=== PATIENT | male | born 1990 | race Caucasian/White ===

== ENCOUNTER 2017-06-19 15:29 | Emergency (ER) | payer SELFPAY ==
[~2017-06-19] VITALS: Ht 175.3 cm; Wt 65.8 kg
[~2017-06-19 15:29] MED LIST: AMOX500C2 PO; ARPZ20T PO; BUSPAR; CLOT15CR6 TOP; DOXY100C2 PO; FLUO40CA PO; HYDR-757 PO; NAPR-1071 PO; NAPR-243 PO; SULF-222 PO; SULF1TAB38 PO; TRAM50TA2 PO; TRM50T PO; VIVANCE
--- OUTSIDE RECORDS SUMMARY | 2017-06-19 15:34 | XMS REPORT ---
Author Author JAZMINE RAMEY [facility] D[facility] Address Unknown Care Team Providers Care Summer Clerk Name Role Phone JAZMINE RAMEY Unavailable PROBLEMS Type Condition ICD9-CM Code [id number] Code Onset Dates Condition Status SNOMED Code Problem Mood disorder F39 Active 26184774 Problem Cellulitis and abscess of unspecified site 682.9 Active 169574802 Problem Contact with or exposure to venereal diseases V01.6 Active 440083347 Problem Sprain and strain of unspecified site of wrist 842.00 Active 44610600 Problem Other accidental fall from one level to another E884.9 Active 512051183 ALLERGIES No Known Allergies SOCIAL HISTORY Never Assessed PLAN OF CARE Activity Details Follow Up prn Reason:refer for Endo & crown #29 VITAL SIGNS Blood pressure systolic 128 mmHg 2016-11-01 Blood pressure diastolic 78 mmHg 2016-11-01 MEDICATIONS Medication Instructions Dosage Frequency Start Date End Date Duration Status Naproxen 500 MG Orally every 12 hrs 1 tablet as needed 12h October, Active BuSpar 10 MG Orally Twice a day 1 tablet 12h October, Active Amoxicillin 500 mg Orally every 12 hrs 2 capsules 12h October,October 10 day(s) Active RESULTS No Results PROCEDURES Procedure Date Ordered Result Body Site LTD ORAL EVALUATION - PROBLEM FOCUS November 01, 2016 INTRAORL-PERIAPICAL 1 FILM 00118 November 01, 2016 BITEWING - SINGLE FILM November 01, 2016 IMMUNIZATIONS No Known Immunizations MEDICAL (GENERAL) HISTORY Type Description Date Medical History anxiety Hospitalization History suicide attempt 2012 Hospitalization History multiple inpatient and group homes when child
--- OUTSIDE RECORDS SUMMARY | 2017-06-19 15:34 | XMS REPORT | Clinical Summary ---
Author Author [facility] Address Unknown Phone Unavailable Allergies Not on File Current Medications Not on file Active Problems Not on file Social History Tobacco Use Types Packs/Day Years Used Date Never Assessed Sex Assigned at Date Recorded Not on file Plan of Treatment Health Maintenance Due Date Last Done Comments Varicella Vaccines (1 of 2005 2 - 2 Dose Adolescent Series) DTaP,Tdap,and Td Vaccines 2011 (1 - Tdap) Influenza Vaccine (#1) 2017 HPV Vaccines Aged Out No longer eligible based on patient's age to complete this topic Results Not on filefrom Last 3 Months
--- OUTSIDE RECORDS SUMMARY | 2017-06-19 15:34 | XMS REPORT ---
Author Author ROMEO JIMENES Organization [employer] Address Unknown Phone Unavailable Care Team Providers Care Metal Fitter Name Role Phone ROMEO JIMENES CP Unavailable Allergies, Adverse Reactions, Alerts Substance Reaction Event Type N.K.D.A. Info Not Available Non Drug Allergy Problems Problem Type Condition Code Onset Dates Condition Status Problem Contact with or exposure to venereal diseases V01.6 Active Problem Sprain and strain of unspecified site of wrist 842.00 Active Problem Cellulitis and abscess of unspecified site 682.9 Active Problem Other accidental fall from one level to another E884.9 Active Assessment Dental examination Z01.20 Active Medications No Known Medications Procedures Procedure Coding System Code Date INTRAORL-PERIAPICAL 1 FILM 18579 CPT-4 D0220 January 12, 2016 INTRAORL-PERIAPICAL EA ADD FILM CPT-4 D0230 January 12, 2016 LTD ORAL EVALUATION - PROBLEM FOCUS CPT-4 D0140 January 12, 2016 BITEWING - SINGLE FILM CPT-4 D0270 January 12, 2016 Vital Signs Date/Time: January 12, 2016 Blood Pressure Diastolic 89 mmHg Blood Pressure Systolic 134 mmHg Results No Known Results Summary Purpose [employer] Submission
--- OUTSIDE RECORDS SUMMARY | 2017-06-19 15:35 | XMS REPORT ---
Author Author DEJA HICKS Organization [facility] Address [address] [place] [address] Care Team Providers Care Blindmaker Name Role Phone DEJA HICKS Unavailable PROBLEMS Type Condition ICD9-CM Code [id number] Code Onset Dates Condition Status SNOMED Code Problem Mood disorder F39 Active 71741285 Problem Cellulitis and abscess of unspecified site 682.9 Active 805686240 Problem Contact with or exposure to venereal diseases V01.6 Active 403550731 Problem Sprain and strain of unspecified site of wrist 842.00 Active 06091630 Problem Other accidental fall from one level to another E884.9 Active 452078320 ALLERGIES No Information SOCIAL HISTORY Never Assessed PLAN OF CARE VITAL SIGNS Height 67 in 2016-10-31 Weight 142 lbs 2016-10-31 Heart Rate 60 bpm 2016-10-31 Respiratory Rate 16 2016-10-31 BMI 22.24 kg/m2 2016-10-31 Blood pressure systolic 108 mmHg 2016-10-31 Blood pressure diastolic 60 mmHg 2016-10-31 MEDICATIONS Medication Instructions Dosage Frequency Start Date End Date Duration Status Naproxen 500 MG Orally every 12 hrs 1 tablet as needed October, Active BuSpar 10 MG Orally Twice a day 1 tablet October, Active Amoxicillin 500 mg Orally every 12 hrs 2 capsules October,October 10 day(s) Active RESULTS No Results PROCEDURES No Known procedures IMMUNIZATIONS No Known Immunizations MEDICAL (GENERAL) HISTORY Type Description Date Medical History anxiety Hospitalization History suicide attempt 2012 Hospitalization History multiple inpatient and group homes when child
--- OUTSIDE RECORDS SUMMARY | 2017-06-19 15:35 | XMS REPORT ---
Author Author JAZMINE RAMEY [facility] DENTAL Address Unknown Care Team Providers Care Senior Project Manager Engineering Name Role Phone KAROLINE JAZMINE Unavailable PROBLEMS Type Condition ICD9-CM Code [id number] Code Onset Dates Condition Status SNOMED Code Problem Mood disorder F39 Active 63655489 Problem Cellulitis and abscess of unspecified site 682.9 Active 230909669 Problem Contact with or exposure to venereal diseases V01.6 Active 276076042 Problem Sprain and strain of unspecified site of wrist 842.00 Active 84505392 Problem Other accidental fall from one level to another E884.9 Active 278710846 ALLERGIES No Known Allergies SOCIAL HISTORY Never Assessed PLAN OF CARE VITAL SIGNS MEDICATIONS Unknown Medications RESULTS No Results PROCEDURES Procedure Date Ordered Result Body Site LTD ORAL EVALUATION - PROBLEM FOCUS October 10, 2016 INTRAORL-PERIAPICAL 1 FILM 40064 October 10, 2016 EXTRAC ERUPTED TOOTH/EXPOSED ROOT October 10, 2016 IMMUNIZATIONS No Known Immunizations MEDICAL (GENERAL) HISTORY Type Description Date Medical History anxiety Hospitalization History suicide attempt 2012 Hospitalization History multiple inpatient and group homes when child
--- OUTSIDE RECORDS SUMMARY | 2017-06-19 15:35 | XMS REPORT ---
Author Author DEJA HICKS [facility] Address [address] [place] [address] Care Team Providers Care Market Research Senior Project Manager Name Role Phone DEJA HICKS Unavailable PROBLEMS Type Condition ICD9-CM Code [id number] Code Onset Dates Condition Status SNOMED Code Problem Mood disorder F39 Active 61790558 Problem Cellulitis and abscess of unspecified site 682.9 Active 094401602 Problem Contact with or exposure to venereal diseases V01.6 Active 295219254 Problem Sprain and strain of unspecified site of wrist 842.00 Active 28330867 Problem Other accidental fall from one level to another E884.9 Active 672623332 ALLERGIES No Information SOCIAL HISTORY Never Assessed PLAN OF CARE VITAL SIGNS MEDICATIONS Unknown Medications RESULTS Name Result Date Reference Range A1C (IN HOUSE) 2016-11-14 A1C IN HOUSE 5.6 4.3 - 5.6 % Previous A1c n/a Lot [id number] Exp date 06/2018 PROCEDURES Procedure Date Ordered Result Body Site GLYCATED HEMOGLOBIN TEST November 14, 2016 VENIPUNCT, ROUTINE* November 14, 2016 IMMUNIZATIONS No Known Immunizations MEDICAL (GENERAL) HISTORY Type Description Date Medical History anxiety Hospitalization History suicide attempt 2013 Hospitalization History multiple inpatient and group homes when child
--- OUTSIDE RECORDS SUMMARY | 2017-06-19 15:35 | XMS REPORT ---
Author Author DEJA HICKS [facility] Address [address] [place] [address] Care Team Providers Care Profile Stitching Machine Operator Name Role Phone DEJA HICKS Unavailable PROBLEMS Type Condition ICD9-CM Code [id number] Code Onset Dates Condition Status SNOMED Code Problem Mood disorder F39 Active 24059345 Problem Cellulitis and abscess of unspecified site 682.9 Active 778118816 Problem Contact with or exposure to venereal diseases V01.6 Active 609985586 Problem Sprain and strain of unspecified site of wrist 842.00 Active 48872878 Problem Other accidental fall from one level to another E884.9 Active 585834202 ALLERGIES Unknown Allergies SOCIAL HISTORY No smoking Hx information available PLAN OF CARE VITAL SIGNS Height 67 in 2016-07-11 Weight 143 lbs 2016-07-11 Heart Rate 76 bpm 2016-07-11 Respiratory Rate 16 2016-07-11 BMI 22.39 kg/m2 2016-07-11 Blood pressure systolic 110 mmHg 2016-07-11 Blood pressure diastolic 78 mmHg 2016-07-11 MEDICATIONS Unknown Medications RESULTS No Results PROCEDURES Procedure Date Ordered Related Diagnosis Body Site Office Visit, Est Pt., Level 2 Jul 11, 2016 IMMUNIZATIONS No Known Immunizations
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
--- OUTSIDE RECORDS SUMMARY | 2017-06-19 15:35 | XMS REPORT ---
Author Author DEJA HICKS [facility] Address [address] [place] [address] Care Team Providers Care Supervisor Customer Records Division Name Role Phone DEJA HICKS Unavailable PROBLEMS Type Condition ICD9-CM Code [id number] Code Onset Dates Condition Status SNOMED Code Problem Mood disorder F39 Active 11755733 Problem Cellulitis and abscess of unspecified site 682.9 Active 717215532 Problem Contact with or exposure to venereal diseases V01.6 Active 966185834 Problem Sprain and strain of unspecified site of wrist 842.00 Active 02373847 Problem Other accidental fall from one level to another E884.9 Active 781935211 ALLERGIES No Information SOCIAL HISTORY Never Assessed PLAN OF CARE VITAL SIGNS MEDICATIONS Medication Instructions Dosage Frequency Start Date End Date Duration Status BuSpar 15 MG Orally Twice a day 1 tablet 12h October, Active RESULTS No Results PROCEDURES No Known procedures IMMUNIZATIONS No Known Immunizations MEDICAL (GENERAL) HISTORY Type Description Date Medical History anxiety Hospitalization History suicide attempt 2013 Hospitalization History multiple inpatient and group homes when child
[2017-06-19] MEDS ORDERED: KETOROLAC 60 MG/2 ML VIAL IM STA (16:14)
[2017-06-19] MEDS ORDERED: LIDOCAINE 1% INJ 20 ML (XYLOCAINE) VIAL INJ ONE (16:15)
[2017-06-19] MEDS ORDERED: cefTRIAXone 1 GM (ROCEPHIN) VIAL IM ONE (16:15)
[2017-06-19] MEDS ORDERED: AMOX500T2 PO (16:19)
[2017-06-19] MEDS ORDERED: LIDO15SO2 MM (16:19)
[2017-06-19] MEDS ORDERED: NAPR500T4 PO (16:19)
[2017-06-19] MEDS ORDERED: LIDOCAINE PF 1% 5 ML (XYLOCAINE) AMP ONE (16:19)
--- NOTE | 2017-06-19 16:19 | ED EENT ---
History of Present Illness General Chief Complaint: Dental Problems/Pain Stated Complaint: TOOTH PAIN Nursing Triage Note: PT C/O L UPPER DENTAL PAIN AND SWELLING. Source: patient History of Present Illness Time seen by provider: 16:05 Initial Comments PT C/O DENTAL PAIN X 1 WEEK, WITH SWELLING TO LEFT SIDE OF FACE X 3 DAYS NO KNOWN FEVER PT WITH CHRONIC DENTAL PROBLEMS--HAS BEEN TO [facility] IN THE PAST, BUT THEY CANNOT GET HIM IN TODAY, SO HE CAME HERE PT STATES HAS BEEN TAKING IBUPROFEN WITHOUT RELIEF PT IS CURRENTLY IN TREATMENT AT [facility] FOR DRUG ADDICTION/ METH USE--STATES HE SMOKED IT, DENIES IV USE PCP:[facility] Allergies and Home Medications Allergies Coded Allergies: No Known Drug Allergies (Unverified , 11/10/11) Home Medications Amoxicillin 500 Mg Tablet, 1,000 MG PO TID, #60 Prescribed by: RANDEE LAMAS on 06/19/17 1619 Lidocaine HCl 15 Ml Solution, 1-2 ML MM Q 1-2 HOURS, #120 Prescribed by: RANDEE LAMAS on 06/19/17 1619 Naproxen 500 Mg Tablet, 500 MG PO BID, #20 Prescribed by: RANDEE LAMAS on 06/19/17 1619 Sulfamethoxazole/Trimethoprim 1 Each Tablet, 1 EACH PO BID, #20 Ref 0 Prescribed by: CELIA MARTIN on 03/24/16 0321 [Buspar] , (Reported) [Vivance] , (Reported) Review of Systems Constitutional: no symptoms reported Ears: No Symptoms Reported Nose: no symptoms reported Mouth: see HPI Throat: no symptoms reported Respiratory: no symptoms reported Cardiovascular: no symptoms reported Gastrointestinal: no symptoms reported Musculoskeletal: no symptoms reported Skin: no symptoms reported Neurological: No Symptoms Reported Hematologic/Lymphatic: No Symptoms Reported Immunological/Allergic: no symptoms reported Past Ghfhdnw-Gkykua-Tpzbyp Hx Patient Social History Alcohol Use: Denies Use Recreational Drug Use: Yes (METH, DENIES IV USE--SMOKED IT) Drug of Choice: METHAMPHETAMINE, DENIES IV USE--SMOKES IT Smoking Status: Current Everyday Smoker (1 PPD) Type Used: Cigarettes (1 PPD) 2nd Hand Smoke Exposure: Yes Recent Foreign Travel: No Contact w/Someone Who Travel: No Recent Infectious Disease Expo: No Recent Hopitalizations: No Immunizations Up To Date Tetanus Booster (TDap): Less than 5yrs PED Vaccines UTD: No Date of Influenza Vaccine: Jun 30, 2013 Seasonal Allergies Seasonal Allergies: No Surgeries History of Surgeries: No Respiratory History of Respiratory Disorde: No Cardiovascular History of Cardiac Disorders: No Neurological History of Neurological Disord: No Reproductive System Hx Reproductive Disorders: No Gastrointestinal History of Gastrointestinal Di: No Musculoskeletal History of Musculoskeletal Dis: No Endocrine History of Endocrine Disorders: No HEENT History of HEENT Disorders: Yes (POOR DENTITION/DENTAL CARIES/ABSCESS) Cancer History of Cancer: No Psychosocial History of Psychiatric Problem: Yes (SUBSTANCE ABUSE--METH) Behavioral Health Disorders: ADD/ADHD, Anxiety, PTSD, Suicide Attempts, Bipolar , Depression Integumentary History of Skin or Integumenta: No Blood Transfusions History of Blood Disorders: No Adverse Reaction to a Blood Tr: No Family Medical History Significant Family History: No Pertinent Family Hx Family Medial History: Heart disease 03 MOTHER, Onset:Unknown (Patient states that mother has an internal defibrillator.) Physical Exam Vital Signs Vital Sign - Last 12Hours 06/19/17 15:56 Temp 97.0 Pulse 73 Resp 14 B/P (MAP) 122/68 (86) Pulse Ox 100 O2 Delivery Room Air General Appearance: WD/WN, no apparent distress, other (REEKS OF CIGARETTES) Eyes: bilateral eye normal inspection, bilateral eye PERRL, bilateral eye EOMI Ears: bilateral ear auricle normal, bilateral ear canal normal, bilateral ear TM normal Nose: normal inspection Mouth/Throat: No mandibular swelling, maxillary swelling, No trismus, other ( EXTENSIVE CARIES--MANY DECAYED DOWN TO GUMS, LEFT UPPER PREMOLAR WITH EXTENSIVE CARIES WITH SURROUNDING INFLAMMATION AND SWELLING TO ADJACENT GUM TISSUE, WITH MILD SWELLING TO FACE. NO AREAS OF FLUCTUANCE. ) Neck: non-tender, full range of motion, supple, normal inspection, No lymphadenopathy (R), No lymphadenopathy (L) Cardiovascular: regular rate, rhythm, no murmur Respiratory: normal breath sounds, no respiratory distress, no accessory muscle use Neurologic/Psychiatric: director of property management II-XII nml as tested, no motor/sensory deficits, alert, normal mood/affect, oriented x 3 Skin: normal color, warm/dry Progress/Results/Core Measures Results/Orders My Orders Orders - RANDEE LAMAS DO Ketorolac Injection (Toradol Injection) (06/19/17 16:14) Ceftriaxone Injection (Rocephin Injectio (06/19/17 16:15) Lidocaine 1% Injection (Xylocaine 1% Inj (06/19/17 16:15) Lidocaine Pf 1% 5 Ml Injection (Xylocain (06/19/17 16:19) Medications Given in ED Current Medications Medications Dose Ordered Sig/Grace Route Start Time Stop Time Status Last Admin Dose Admin Ceftriaxone Sodium 1,000 mg ONCE ONCE IM 06/19/17 16:15 06/19/17 16:16 DC 06/19/17 16:33 1,000 MG Lidocaine HCl 5 ml STK-MED ONCE .ROUTE 06/19/17 16:19 06/19/17 16:21 DC 06/19/17 16:30 5 ML Vital Signs/I&O Vital Sign - Last 12Hours 06/19/17 06/19/17 15:56 16:35 Temp 97.0 97.0 Pulse 73 73 Resp 14 14 B/P (MAP) 122/68 (86) Pulse Ox 100 100 O2 Delivery Room Air Blood Pressure Mean: 86 Departure Impression Impression: Primary Impression: DENTAL CARIES WITH ABSCESS Disposition: 01 HOME, SELF-CARE Condition: Stable Departure-Patient Inst. Referrals: [facility] (PCP/Family) Primary Care Physician Patient Instructions: Tooth Abscess (DC), Tooth Decay, Adult (DC) Add. Discharge Instructions: FOLLOW UP WITH DENTIST SOON POSSIBLE--CALL TODAY FOR APPOINTMENT FREQUENT SALT WATER SWISHES All discharge instructions reviewed with patient and/or family. Voiced understanding. Scripts Naproxen (Naproxen) 500 Mg Tablet 500 MG PO BID, #20 TAB Prov: RANDEE LAMAS DO 06/19/17 Lidocaine HCl (Lidocaine HCl Viscous) 15 Ml Solution 1-2 ML MM Q 1-2 HOURS for Pain, #120 ML Prov: RANDEE LAMAS DO 06/19/17 Amoxicillin (Amoxicillin) 500 Mg Tablet 1000 MG PO TID, #60 TAB Prov: RANDEE ALMAS DO 06/19/17 RANDEE LAMAS DO Jun 19, 2017 16:19
[2017-06-19 16:35] VITALS: BP 122/68
== END 2017-06-19 16:35 | disposition home or self-care (01) ==
LOC: EDUNIT# 15:29 → ER 15:31
DX: K04.7 Periapical abscess without sinus (principal); K02.9 Dental caries, unspecified; F15.10 Other stimulant abuse, uncomplicated; F17.210 Nicotine dependence, cigarettes, uncomplicated; F41.9 Anxiety disorder, unspecified; F31.9 Bipolar disorder, unspecified; F43.10 Post-traumatic stress disorder, unspecified; Z82.49 Family history of ischemic heart disease and other diseases of the circulatory system
CPT/HCPCS: 99284

== ENCOUNTER 2017-06-19 23:17 | Emergency (ER) | payer SELFPAY ==
[~2017-06-19] VITALS: Ht 175.3 cm; Wt 65.8 kg
[~2017-06-19 23:17] MED LIST changes: +AMOX500T2 PO; +LIDO15SO2 MM; +NAPR500T4 PO
[2017-06-19] MEDS ORDERED: RX-HYDROCODONE/APAP 5/325 MG #4 TAB PK PO PRN (23:45)
--- NOTE | 2017-06-19 23:45 | ED EENT ---
History of Present Illness General Chief Complaint: Dental Problems/Pain Stated Complaint: ABSCESS TOOTH Nursing Triage Note: increased facial swelling/ dental pain Source: patient Exam Limitations: no limitations History of Present Illness Time seen by provider: 23:30 Initial Comments Here with report of increased pain over the area of the upper jaw on the left side. States that the swelling has increased. Seen earlier in the day for the same and given a shot of Rocephin and prescribed antibiotics, Naprosyn and lidocaine gel. He did fill the prescriptions and did start the amoxicillin. States the pain medicine is not working. He is trying to get in with a dentist. Timing/Duration: gradual Severity: moderate Location: mouth, dental Prearrival Treatment: over the counter meds, prescription meds Associated Symptoms: No cough, facial pain/swelling, No fever, No nasal congestion/drainage, No sinus infection, No sore throat, tooth pain, No voice change Allergies and Home Medications Allergies Coded Allergies: No Known Drug Allergies (Unverified , 11/10/11) Home Medications Amoxicillin 500 Mg Tablet, 1,000 MG PO TID, #60 Prescribed by: RANDEE LAMAS on 06/19/17 1619 Lidocaine HCl 15 Ml Solution, 1-2 ML MM Q 1-2 HOURS, #120 Prescribed by: RANDEE LAMAS on 06/19/17 1619 Naproxen 500 Mg Tablet, 500 MG PO BID, #20 Prescribed by: RANDEE LAMAS on 06/19/17 1619 Sulfamethoxazole/Trimethoprim 1 Each Tablet, 1 EACH PO BID, #20 Ref 0 Prescribed by: CELIA MARTIN on 03/24/16 0321 [Buspar] , (Reported) [Vivance] , (Reported) Review of Systems Constitutional: see HPI, No chills, No fever Eyes: No Symptoms Reported Ears: No Symptoms Reported Nose: no symptoms reported Mouth: see HPI Throat: no symptoms reported Respiratory: no symptoms reported Cardiovascular: no symptoms reported Gastrointestinal: no symptoms reported Past Ksahvra-Rocmte-Bqnukk Hx Patient Social History Alcohol Use: Denies Use Recreational Drug Use: No Drug of Choice: METHAMPHETAMINE hx Smoking Status: Current Everyday Smoker Type Used: Cigarettes 2nd Hand Smoke Exposure: Yes Recent Foreign Travel: No Contact w/Someone Who Travel: No Recent Infectious Disease Expo: No Recent Hopitalizations: No Immunizations Up To Date Tetanus Booster (TDap): Less than 5yrs PED Vaccines UTD: No Date of Influenza Vaccine: Jun 30, 2013 Seasonal Allergies Seasonal Allergies: No Surgeries History of Surgeries: No Respiratory History of Respiratory Disorde: No Cardiovascular History of Cardiac Disorders: No Neurological History of Neurological Disord: No Reproductive System Hx Reproductive Disorders: No Genitourinary History of Genitourinary Disor: No Gastrointestinal History of Gastrointestinal Di: No Musculoskeletal History of Musculoskeletal Dis: No Endocrine History of Endocrine Disorders: No HEENT History of HEENT Disorders: Yes (POOR DENTITION/DENTAL CARIES/ABSCESS) Cancer History of Cancer: No Psychosocial History of Psychiatric Problem: Yes (SUBSTANCE ABUSE--METH) Behavioral Health Disorders: ADD/ADHD, Anxiety, PTSD, Suicide Attempts, Bipolar , Depression Integumentary History of Skin or Integumenta: No Blood Transfusions History of Blood Disorders: No Adverse Reaction to a Blood Tr: No Reviewed Nursing Assessment Reviewed/Agree w Nursing PMH: Yes Family Medical History Significant Family History: No Pertinent Family Hx Family Medial History: Heart disease 03 MOTHER, Onset:Unknown (Patient states that mother has an internal defibrillator.) Physical Exam Vital Signs Vital Sign - Last 12Hours 06/19/17 23:20 Temp 98.8 Pulse 77 Resp 18 B/P (MAP) 152/98 (116) Pulse Ox 99 O2 Delivery Room Air General Appearance: WD/WN, no apparent distress Eyes: bilateral eye normal inspection, bilateral eye PERRL, bilateral eye EOMI Ears: bilateral ear auricle normal, bilateral ear canal normal, bilateral ear TM normal Nose: normal inspection Mouth/Throat: pharynx normal, dental tenderness, maxillary swelling, other ( mild swelling over the left frontal maxillary area involving the area above the canine on the face and cheek on the left side. Mild redness noted.) Neck: full range of motion, supple Cardiovascular: regular rate, rhythm, no murmur Respiratory: lungs clear, normal breath sounds Neurologic/Psychiatric: alert, oriented x 3 Skin: warm/dry, other (see description above) Progress/Results/Core Measures Results/Orders Vital Signs/I&O Vital Sign - Last 12Hours 06/19/17 23:20 Temp 98.8 Pulse 77 Resp 18 B/P (MAP) 152/98 (116) Pulse Ox 99 O2 Delivery Room Air Blood Pressure Mean: 116 Progress Note : Progress Note Seen and evaluated. Patient is on appropriate antibiotics and has just started these. I will give him a go pack of hydrocodone and then have him return for recheck tomorrow with instructions to continue to attempt follow-up with a dentist. Discharged home with return precautions. Patient verbalize understanding instructions and agreement with plan. Departure Impression Impression: Primary Impression: Dental abscess Disposition: HOME, SELF-CARE Condition: Stable Departure-Patient Inst. Decision time for Depature: 23:44 Referrals: [facility] [place] (PCP/Family) Primary Care Physician Patient Instructions: Tooth Abscess (DC) Add. Discharge Instructions: All discharge instructions reviewed with patient and/or family. Voiced understanding. Continue medications as previously prescribed. Use salt water rinses as previously indicated several times daily. Follow-up with a dentist as soon as possible. Return in 24 hours for recheck if not improving and or earlier if worsening. Return for worse pain, fever, vomiting, markedly increased swelling or other concerns as needed. CELIA MARTIN MD Jun 19, 2017 23:45
[2017-06-19 23:47] VITALS: BP 152/98
== END 2017-06-19 23:46 | disposition home or self-care (01) ==
LOC: EDUNIT# 23:17 → ER 23:18
DX: K04.7 Periapical abscess without sinus (principal); F17.210 Nicotine dependence, cigarettes, uncomplicated; F15.10 Other stimulant abuse, uncomplicated; F41.9 Anxiety disorder, unspecified; F31.9 Bipolar disorder, unspecified; F90.9 Attention-deficit hyperactivity disorder, unspecified type; F43.10 Post-traumatic stress disorder, unspecified
CPT/HCPCS: 99283

== ENCOUNTER 2017-11-04 10:25 | Emergency (ER) | payer SELFPAY ==
[~2017-11-04 10:25] MED LIST changes: +NAPR-915 PO; -NAPR500T4 PO
== END 2017-11-04 11:08 | disposition left against medical advice (07) ==
LOC: EDUNIT# 10:25 → ER 10:27
DX: R51 Headache (principal)

== ENCOUNTER 2020-04-23 17:36 | Emergency (ER) | payer SELFPAY ==
[~2020-04-23] VITALS: Ht 180.3 cm; Wt 77.1 kg
[~2020-04-23 17:36] MED LIST changes: -LIDO15SO2 MM; +LIDO20SO23 MM
[2020-04-23 18:06] VITALS: BP 152/97
[2020-04-23] MEDS ORDERED: VANCOMYCIN INJECTION 750 MG in NS (IVPB) 250 ML IV SCH (18:15)
[2020-04-23] MEDS ORDERED: PIPERACILLIN SODIUM/TAZOBACTAM 4.5 GM in NS (IVPB) 100 ML IV ONE (18:15)
[2020-04-23] MEDS ORDERED: KETOROLAC 30 MG/ML VIAL IVP STA (18:21)
[2020-04-23] MEDS ORDERED: LACTATED RINGERS 1,000 ML IV ONE (18:21)
[2020-04-23 18:24] LABS: BASOPHILS # (AUTO) 0.1 10^3/uL (0.0-0.1); BASOPHILS % (AUTO) 0 % (0-10); EOSINOPHILS # (AUTO) 0.1 10^3/uL (0.0-0.3); EOSINOPHILS % (AUTO) 1 % (0-10); HEMATOCRIT 39 % (40-54); HEMOGLOBIN 12.8 g/dL (13.3-17.7); LYMPHOCYTES # (AUTO) 2.3 10^3/uL (1.0-4.0); LYMPHOCYTES % (AUTO) 10 % (12-44); MEAN CORPUSCULAR HEMOGLOBIN 28 pg (25-34); MEAN CORPUSCULAR HGB CONC 33 g/dL (32-36); MEAN CORPUSCULAR VOLUME 85 fL (80-99); MEAN PLATELET VOLUME 8.8 fL (9.0-12.2); MONOCYTES # (AUTO) 2.3 10^3/uL (0.0-1.0); MONOCYTES % (AUTO) 11 % (0-12); NEUTROPHILS # (AUTO) 17.1 10^3/uL (1.8-7.8); NEUTROPHILS % (AUTO) 78 % (42-75); PLATELET COUNT 340 10^3/uL (130-400)
[2020-04-23] MEDS ORDERED: TETANUS,DIPTH,PERTUSS P/F (BOOSTRIX) 0.5 ML VIAL IM ONE ×2 (18:30→23:04)
--- NOTE | 2020-04-23 18:31 | ED Upper Extremity ---
General Chief Complaint: Upper Extremity Stated Complaint: POSS SPIDER BITE LT FINGER Nursing Triage Note: PT AMB TO [facility] 5 WITH COMPLAINT OF LEFT RING FINGER SWELLING AND REDNESS. PT STATES SYMPTOMS STARTED 4 DAYS AGO. PT IS CONCERNED IT IS A SPIDER BITE. Nursing Sepsis Screen: No Definite Risk Source: patient History of Present Illness Date Seen by Provider: Apr 23, 2020 Time Seen by Provider: 18:05 Initial Comments PT ARRIVES VIA POV C/O PAIN, REDNESS AND SWELLING TO LEFT 4TH FINGER FOR 4 DAYS NO KNOWN INJURY. DID NOT SEE OR FEEL ANYTHING "BITE" HIM. NO FEVER SMALL AMOUNT OF DRAINAGE HAS NOT TAKEN ANYTHING FOR SYMPTOMS HAS NOT SOUGHT CARE UNTIL TODAY LAST TETANUS VACCINATION IS UNKNOWN PT IS RIGHT HANDED PT WITH LONG HX OF METH USE, CLAIMS NO IV USE STATES HE IS HERE "TO [employer]" --"TRYING TO MOVE BACK HERE FROM [place]" PCP: [facility]AK[facility] IN PAST-- Allergies and Home Medications Allergies Coded Allergies: No Known Drug Allergies (Unverified , 11/10/11) Home Medications Amoxicillin 500 Mg Tablet, 1,000 MG PO TID Prescribed by: RANDEE LAMAS on 06/19/17 1619 Lidocaine HCl 15 Ml Solution, 1-2 ML MM Q 1-2 HOURS Prescribed by: RANDEE LAMAS on 06/19/17 1619 Naproxen 500 Mg Tablet, 500 MG PO BID Prescribed by: RANDEE LAMAS on 06/19/17 1619 Sulfamethoxazole/Trimethoprim 1 Each Tablet, 1 EACH PO BID Prescribed by: CELIA MARTIN on 03/24/16 0321 Review of Systems Constitutional: No fever Respiratory: no symptoms reported Cardiovascular: no symptoms reported Musculoskeletal: see HPI Skin: see HPI Psychiatric/Neurological: No Symptoms Reported Past Teqjnob-Xezzdt-Eezjco Hx Past Med/Social Hx: Reviewed and Corrections made Patient Social History Alcohol Use: Past History Recreational Drug Use: Yes (METH USE-DENIES IV USE) Drug of Choice: METHAMPHETAMINE hx Smoking Status: Current Everyday Smoker (2 PPD) Type Used: Cigarettes 2nd Hand Smoke Exposure: Yes Recent Foreign Travel: No Contact w/Someone Who Travel: No Recent Infectious Disease Expo: No Recent Hopitalizations: No Immunizations Up To Date Tetanus Booster (TDap): Less than 5yrs PED Vaccines UTD: No Date of Influenza Vaccine: Jun 30, 2013 Seasonal Allergies Seasonal Allergies: No Past Medical History Surgeries: No Respiratory: No Cardiac: No Neurological: No Reproductive Disorders: No Genitourinary: No Gastrointestinal: No Musculoskeletal: No Endocrine: No HEENT: Yes (POOR DENTITION/DENTAL CARIES/ABSCESS) Cancer: No Psychosocial: Yes (SUBSTANCE ABUSE--METH; SUICIDE ATTEMPTS--MULT. CUTS LEFT FOREARM) ADD/ADHD, Anxiety, PTSD, Suicide Attempts, Bipolar, Depression Integumentary: No Blood Disorders: No Adverse Reaction/Blood Tranf: No Family Medical History Heart disease 03 MOTHER, Onset:Unknown (Patient states that mother has an internal defibrillator.) No Pertinent Family Hx SOCIAL HISTORY: PER PT ON 04/23/20 -ETOH--HISTORY OF HEAVY USE, NOW CLAIMS RARE USE -DRUGS--METH USE, CLAIMS NO IV USE, CLAIMS HE ONLY SMOKES IT -SMOKES 2 PPD PT WITH HX OF INCARCERATION AND "ISN'T ALLOWED IN [employer] ANYMORE" Physical Exam Vital Signs Vital Signs - First Documented 04/23/20 18:06 Temp 37.2 Pulse 125 Resp 30 B/P (MAP) 152/97 (115) Pulse Ox 97 O2 Delivery Room Air Capillary Refill : Less Than 3 Seconds Height, Weight, BMI Height: 5'9" Weight: 145lbs. 0oz. [id number]; 23.00 BMI Method:Stated General Appearance: no apparent distress, thin, other (FILTHY AND EXTREMELY MALODOROUS. SOMEWHAT HESITANT AND SOMEWHAT ERRATIC SPEECH. ) HEENT: other (PUPILS DILATED BILATERALLY) Cardiovascular: tachycardia (130'S) Respiratory: normal breath sounds Hand: Left (LEFT HAND PROXMIAL 4TH FINGER WITH 2 CM AREA OF DUSKINESS AND SUB Q PURULENCE. ABLE TO EXPRESS A SMALL AMOUNT OF THICK PURULENT DRAINAGE. ENTIRE LEFT 4TH FINGER WITH MODERATE SWELLING, WARMTH AND ERYTHEMA, EXTENDING TO DORSAL ASPECT OF LEFT HAND AND JUST PROXIMAL TO WRIST, WITH SMALL STREAK NOTED. ) Neurologic/Psychiatric: no motor/sensory deficits, alert Skin: normal color, warm/dry, other ( ABOVE. MULTIPLE OLD LINEAR SCARS TO LEFT ANTERIOR FOREARM) Progress/Results/Core Measures Results/Orders Lab Results Laboratory Tests Test 04/23/20 18:16 Range/Units White Blood Count 22.0 H 4.3-11.0 10^3/uL Red Blood Count 4.61 4.30-5.52 10^6/uL Hemoglobin 12.8 L 13.3-17.7 g/dL Hematocrit 39 L 40-54 % Mean Corpuscular Volume 85 80-99 fL Mean Corpuscular Hemoglobin 28 25-34 pg Mean Corpuscular Hemoglobin Concent 33 32-36 g/dL Red Cell Distribution Width 13.4 10.0-14.5 % Platelet Count 340 130-400 10^3/uL Mean Platelet Volume 8.8 L 9.0-12.2 fL Immature Granulocyte % (Auto) 1 % Neutrophils (%) (Auto) 78 H 42-75 % Lymphocytes (%) (Auto) 10 L 12-44 % Monocytes (%) (Auto) 11 0-12 % Eosinophils (%) (Auto) 1 0-10 % Basophils (%) (Auto) 0 0-10 % Neutrophils # (Auto) 17.1 H 1.8-7.8 10^3/uL Lymphocytes # (Auto) 2.3 1.0-4.0 10^3/uL Monocytes # (Auto) 2.3 H 0.0-1.0 10^3/uL Eosinophils # (Auto) 0.1 0.0-0.3 10^3/uL Basophils # (Auto) 0.1 0.0-0.1 10^3/uL Immature Granulocyte # (Auto) 0.1 0.0-0.1 10^3/uL Neutrophils % (Manual) 78 % Lymphocytes % (Manual) 7 % Monocytes % (Manual) 11 % Eosinophils % (Manual) 0 % Basophils % (Manual) 0 % Band Neutrophils 1 % Reactive Lymphocytes 3 % Rouleau SLIGHT Erythrocyte Sedimentation Rate 12 0-15 MM/HR Prothrombin Time 13.4 12.2-14.7 SEC INR Comment 1.0 0.8-1.4 Activated Partial Thromboplast Time 31 24-35 SEC Sodium Level 138 135-145 MMOL/L Potassium Level 3.6 3.6-5.0 MMOL/L Chloride Level 101 98-107 MMOL/L Carbon Dioxide Level 23 21-32 MMOL/L Anion Gap 14 5-14 MMOL/L Blood Urea Nitrogen 11 7-18 MG/DL Creatinine 0.86 0.60-1.30 MG/DL Estimat Glomerular Filtration Rate > 60 BUN/Creatinine Ratio 13 Glucose Level 113 H 70-105 MG/DL Lactic Acid Level 2.04 *H 0.50-2.00 MMOL/L Calcium Level 9.5 8.5-10.1 MG/DL Corrected Calcium 9.2 8.5-10.1 MG/DL Total Bilirubin 0.5 0.1-1.0 MG/DL Aspartate Amino Transf (AST/SGOT) 16 5-34 U/L Alanine Aminotransferase (ALT/SGPT) 16 0-55 U/L Alkaline Phosphatase 64 40-136 U/L C-Reactive Protein High Sensitivity 5.57 H 0.00-0.50 MG/DL Total Protein 7.1 6.4-8.2 GM/DL Albumin 4.4 3.2-4.5 GM/DL My Orders Orders - RANDEE LAMAS DO Ed Iv/Invasive Line Start (04/23/20 18:11) Hand, Left, 3 Views (04/23/20 18:11) Cbc With Automated Diff (04/23/20 18:11) Comprehensive Metabolic Panel (04/23/20 18:11) Hs C Reactive Protein (04/23/20 18:11) Drug Screen Stat (Urine) (04/23/20 18:11) Lactic Acid Analyzer (04/23/20 18:11) Procalcitonin (Pct) (04/23/20 18:11) Protime With Inr (04/23/20 18:11) Partial Thromboplastin Time (04/23/20 18:11) Blood Culture (04/23/20 18:11) Erythrocyte Sedimentation Rate (04/23/20 18:11) Piperacillin Sodium/Tazobactam (Zosyn Vi (04/23/20 18:15) Vancomycin Injection (Vancomycin Injecti (04/23/20 18:15) Wound Culture (04/23/20 18:11) Ed Iv/Invasive Line Start (04/23/20 18:21) Lactated Ringers (Lr 1000 Ml Iv Solution (04/23/20 18:21) Ketorolac Injection (Toradol Injection) (04/23/20 18:21) Manual Differential (04/23/20 18:16) Dipht,Pertuss(Acell),Tet Adult (Boostrix (04/23/20 18:30) Medications Given in ED Current Medications Medications Dose Ordered Sig/Grace Route Start Time Stop Time Status Last Admin Dose Admin Lactated Ringer's 1,000 ml @ 0 mls/hr Q0M ONCE IV 04/23/20 18:21 04/23/20 18:22 DC 04/23/20 18:26 0 MLS/HR Vital Signs/I&O 04/23/20 18:06 Temp 37.2 Pulse 125 Resp 30 B/P (MAP) 152/97 (115) Pulse Ox 97 O2 Delivery Room Air Blood Pressure Mean: 115 Progress Progress Note : Progress Note 1899--HAVE ADVISED ADMIT, AND DUE TO NO ORTHOPEDIC SURGERY AVAILABLE HERE ALL WEEKEND, PT ADAMANTLY REFUSES ADMIT TO ANY HOSPITAL--STATES "I JUST DON'T HAVE TIME FOR IT" --STRONGLY ENCOURAGED PT TO BE ADMITTED, AND ADVISED OF RISKS OF LEAVING AGAINST MEDICAL ADVICE, INCLUDING LOSS OF HAND/FINGER/LIMB OR , AND HE CONTINUES TO REFUSE ADMIT ANYWHERE. AMA PAPERS SIGNED. Diagnostic Imaging Comments XRAYS LEFT HAND--PER RADIOLOGIST REPORT AT 1899 FINDINGS: There is soft tissue swelling about the left 4th finger. No fracture is seen. Joint spaces are normal. IMPRESSION: Soft tissue swelling about the left 4th finger without underlying fracture. Reviewed: Reviewed by Me Departure Impression Primary Impression: Left against medical advice Disposition: 07 AGAINST MEDICAL ADVICE Condition: Against Medical Advice Departure-Patient Inst. Referrals: [facility] (PCP/Family) Primary Care Physician RANDEE LAMAS DO Apr 23, 2020 18:30
[2020-04-23 18:37] LABS: ALBUMIN 4.4 GM/DL (3.2-4.5); CHLORIDE 101 MMOL/L (98-107); POTASSIUM 3.6 MMOL/L (3.6-5.0); SODIUM 138 MMOL/L (135-145)
[2020-04-23 18:38] LABS: CALCIUM 9.5 MG/DL (8.5-10.1); PROTHROMBIN TIME PATIENT 13.4 SEC (12.2-14.7)
[2020-04-23 18:39] LABS: GLUCOSE 113 MG/DL (70-105); TOTAL PROTEIN 7.1 GM/DL (6.4-8.2)
[2020-04-23 18:40] LABS: BAND NEUTROPHILS 1 %; BASOPHILS % (MANUAL) 0 %; CARBON DIOXIDE 23 MMOL/L (21-32); EOSINOPHILS % (MANUAL) 0 %; LYMPHOCYTES % (MANUAL) 7 %; MONOCYTES % (MANUAL) 11 %; NEUTROPHILS % (MANUAL) 78 %
[2020-04-23 18:41] LABS: BILIRUBIN,TOTAL 0.5 MG/DL (0.1-1.0); REACTIVE LYMPHOCYTES 3 %; ROULEAUX SLIGHT
[2020-04-23 18:43] LABS: ALKALINE PHOSPHATASE 64 U/L (40-136); CREATININE SERUM 0.86 MG/DL (0.60-1.30); GFR ESTIMATED > 60
[2020-04-23 18:44] LABS: BUN/CREATININE RATIO 13
[2020-04-23 18:45] LABS: ERYTHROCYTE SEDIMENTATION RATE 12 MM/HR (0-15)
[2020-04-23 18:46] LABS: ALANINE AMINOTRANSFERASE 16 U/L (0-55)
--- NOTE | 2020-04-23 18:51 | Diagnostic Imaging Report ---
EXAMINATION: Left hand 3 views. HISTORY: Hand pain. COMPARISON: 11/09/2013. FINDINGS: There is soft tissue swelling about the left 4th finger. No fracture is seen. Joint spaces are normal. IMPRESSION: Soft tissue swelling about the left 4th finger without underlying fracture. Dictated by: Dictated on workstation # [id number]
[2020-04-23] MEDS ORDERED: VANCOMYCIN 1500 MG/NS 500 ML IVPB IV ONE ×2 (19:11)
== END 2020-04-23 23:09 | disposition left against medical advice (07) ==
LOC: EDUNIT# 17:36 → ER 17:38
DX: M79.89 Other specified soft tissue disorders (principal); F17.210 Nicotine dependence, cigarettes, uncomplicated; Z23 Encounter for immunization; Z82.49 Family history of ischemic heart disease and other diseases of the circulatory system
CPT/HCPCS: 36415; 73130; 80053; 83605; 84145; 85007; 85027; 85610; 85652; 85730; 86141; 87040; 87070; 87077; 87205; 90715